=== PATIENT | male | born 1970 | race Caucasian/White ===

== ENCOUNTER 2020-07-02 23:30 | Inpatient (IN) | payer MEDICAID ==
[~2020-07-02] VITALS: Ht 167.6 cm; Wt 99.3 kg
--- NOTE | ~2020-07-02 | EMS ---
[facility] [address] [place] [id number] EMS Patient Care Report Name: EMMA LOUIS Room #: PRE Roni#: [id number] Admission: Attend Phys: Discharge: Date of : 72 Report #: [id number] THIS REPORT FOR: //name// Report Transmitted: 07/02/2020 23:15 EMS Care Summary [place], [place]/[facility] Incident [id number] @ 07/02/2020 22:37 Incident Location [address] [place] [address] Patient EMMA LOUIS Male, 50 Years 1970 Patient Address [address] [place] [address] Patient Allergies No known allergies, Chief Complaint Altered LOC, Hyperglycemia Disposition Transported Lights/[place] Dispatch Reason Sick Person Transported To [facility] Narrative Called to the scene for a sick. Upon arrival, P45 on scene. Pt was found up stairs in the bathroom, naked, sitting on toilet. Family stated they found him slumped over on the tub, lethargic. They said he wasn't right all day and tried to take him to the hospital but he wouldn't go in. He also c/o to his brother about his right arm having tremors or jerking like activity. Family stated LNW was yesterday. He was placed on a stair chair, moved to the EMS cot and loaded into the ambulance w/o incident. Vitals, 4 Lead, 18g IV SL and 1,000 bag hung, D-stick HI, Vitals repeated. Pt is still responsive to voice, does answer some questions but hard to understand, no slurred speech. Vitals [facility] [address] [place] [address] EMS Patient Care Report Name: EMMA LOUIS Room #: PRE ER M.R.#: [id number] Admission: Attend Phys: Discharge: Date of : 72 Report #: [id number] repeated. En route: RR to [facility]. After the EMS report, pt had a full blow, tonic-clonic seizure lasting approx 90 seconds @ 23:17. We pulled the ambulance over, 5mg Versed drawn up, but by the time it was ready the pt had stopped seizing. He became cyanotic in the face during the seizure, O2 via NRB administered, pt pinked up within about 60 seconds. He had a carotid pulse the hole time. 975cc NS. ER updated on pt change. Vitals repeated. D-stick. Arrived: pt taken to ER #4 and moved to their bed w/o incident. Pt care & report to ER staff. *5mg Versed wasted with SMART GRID ENGINEER, see signature section. Initial Vitals @23:14P: 234, @23:07P: 102,SpO2: 93, @23:14P: 251,CO: 0,SpO2: 93, @23:05P: 105,SpO2: 89, @23:18P: 124,BP: 80/60, @23:25P: 110,R: 32,BP: 96/59,Pain: 0/10,GCS: 7,Glucose: -2,SpO2: 98,Revised Trauma: 9,RI Suspected: false @23:06P: 104,R: 36,BP: 75/51,Pain: 0/10,GCS: 12,Glucose: -2,SpO2: 90,Revised Trauma: 8,RI Suspected: false @23:01P: 109,R: 16,BP: 90/60,Pain: 0/10,GCS: 12,SpO2: 90,Revised Trauma: 11, Assessments @22:47MENTAL:Confused,Person Oriented,SKIN:Hot,HEENT:Eyes: Left Pupil: 3-mm,Eyes: Right Pupil: 3-mm,LUNG SOUNDS:ABDOMEN:PELVIS//GI:EXTREMITIES:Left Arm: No Abnormalities,Right Arm: No Abnormalities,Left Leg: No Abnormalities,Right Leg: No Abnormalities,PULSE:Radial: 1+ Thready,Carotid: 2+ Normal,NEURO:@23:17MENTAL:Unresponsive,SKIN:Cyanotic,HEENT:LUNG SOUNDS:ABDOMEN:PELVIS//GI:EXTREMITIES:PULSE:Carotid: 2+ Normal,NEURO:Seizures, Impression Diabetic Hyperglycemia Procedures @23:05Saline Lock 8cc (18 ga) Site: Antecubital-LeftResponse: UnchangedSucceeded@23:07Normal Saline (.9% NaCl) 975cc (18 ga) Site: Antecubital-LeftResponse: UnchangedSucceeded@23:14General CommentsResponse: Worse@22:58StretcherResponse: Unchanged@23:20Oxygen FlowRate: 15 Device: Non Re-breather Mask (NRB) Response: UnchangedSucceeded@22:55StairchairResponse: Unchanged@23:023-Lead ECGResponse: UnchangedSucceeded@22:47ALS AssessmentResponse: UnchangedSucceeded Timeline 22:36,Call Received [facility] [address] [place] [place] [address] EMS Patient Care Report Name: EMMA LOUIS Room #: PRE M.R.#: [id number] Admission: Attend Phys: Discharge: Date of : 72 Report #: [id number] 22:36,Dispatch Notified 22:37,Dispatched 22:39,En Route 22:46,On Scene 22:47,At Patient 22:47,ALS Assessment,Response: UnchangedSucceeded, 22:55,Stairchair,Response: Unchanged 22:58,Stretcher,Response: Unchanged 23:01,BP: 90/60 M,PULSE: 109,RR: 16 R,SPO2: 90 Ox,ETCO2: ,BG: ,PAIN: 0,GCS: 12, 23:02,3-Lead ECG,Response: UnchangedSucceeded, 23:05,Saline Lock 8cc 18 ga Site: Antecubital-Left,Response: UnchangedSucceeded, 23:05,BP: / M,PULSE: 105,RR: R,SPO2: 89 Ox,ETCO2: ,BG: ,PAIN: ,GCS: , 23:06,BP: 75/51 M,PULSE: 104,RR: 36 R,SPO2: 90 Ox,ETCO2: ,BG: -2,PAIN: 0,GCS: 12, 23:07,Normal Saline (.9% NaCl) 975cc 18 ga Site: Antecubital-Left,Response: UnchangedSucceeded, 23:07,BP: / M,PULSE: 102,RR: R,SPO2: 93 Ox,ETCO2: ,BG: ,PAIN: ,GCS: , 23:10,Depart Scene 23:14,BP: / M,PULSE: 251,RR: R,SPO2: 93 Ox,ETCO2: ,BG: ,PAIN: ,GCS: , 23:14,General Comments,Response: Worse 23:14,BP: / M,PULSE: 234,RR: R,SPO2: Ox,ETCO2: ,BG: ,PAIN: ,GCS: , 23:18,BP: 80/60 M,PULSE: 124,RR: R,SPO2: Ox,ETCO2: ,BG: ,PAIN: ,GCS: , 23:20,Oxygen FlowRate: 15 Device: Non Re-breather Mask (NRB) Response: UnchangedSucceeded, 23:25,BP: 96/59 M,PULSE: 110,RR: 32 R,SPO2: 98 Ox,ETCO2: ,BG: -2,PAIN: 0,GCS: 7, 23:33,At Destination 23:48,Call Closed Disclaimer v1.1 Copyright 2020 [employer] This EMS Care Summary contains data elements from the applicable legal record (which may be displayed differently). It is designed to provide pertinent information for the following purposes: continuity of care, clinical quality, and state data reporting. The complete legal record is available to ED staff and administrators of the receiving hospital in [employer]'s Patient Tracker. All data is provided "as is."
[2020-07-02 23:32] VITALS: BP 102/58
[2020-07-03] VITALS (103 sets, daily range): BP systolic 78–135; BP diastolic 36–82
--- NOTE | 2020-07-03 | NUR ---
INTUBATION BY ERP SUCC 120MG ETOMIDATE 20MG TAPED AT 25 TO LIP OG TUBE TAPED AT 65
[2020-07-03 00:14] LABS: BE(vivo) -14.3 mmol/L (-2 to +3); HCO3 14.8 mmol/L (22.0-26.0); PCO2 46.2 mmHg (35.0-45.0)
[2020-07-03 00:15] LABS: pH 7.124 (7.360-7.450)
[2020-07-03 00:36] LABS: ABSOLUTE NEUTROPHILS 10.3 thou/uL (1.4-8.2); BASOPHILS 0.3 % (0.0-2.0); HEMOGLOBIN 14.9 gm/dL (14.0-18.0); LYMPHOCYTES 13.9 % (24.0-44.0); MCH 30.7 pg (26.0-34.0); MCHC 28.2 g/dL (28.0-37.0); MCV 108.9 fL (80.0-100.0); MONOCYTES 11.8 % (1.0-8.0); PLATELET COUNT 377 thou/uL (150-400); RBC 4.86 mil/uL (4.50-6.00); RDW 15.6 % (10.5-14.5); WBC 13.9 thou/uL (4.0-11.0)
[2020-07-03 00:42] LABS: ANION GAP 27 mmol/L (7-16); BUN 65 mg/dL (7-18); CALCIUM 9.7 mg/dL (8.5-10.1); CHLORIDE 90 mmol/L (98-107); CO2 15 mmol/L (21-32); CREATININE 4.1 mg/dL (0.7-1.3); POTASSIUM 4.7 mmol/L (3.5-5.1); SODIUM 132 mmol/L (136-145)
[2020-07-03 00:49] LABS: ALBUMIN 3.5 g/dL (3.4-5.0); DIRECT BILIRUBIN < 0.1 mg/dL (<0.1-0.2); SGOT 11 U/L (15-37); SGPT 40 U/L (30-65); TOTAL BILIRUBIN 0.4 mg/dL (0.2-1.0); TOTAL PROTEIN 7.5 g/dL (6.4-8.2); TROPONIN-I <0.06 ng/mL (<0.06)
[2020-07-03 01:13] LABS: URINE BILIRUBIN NEGATIVE (Negative); URINE BLOOD 3+ (Negative); URINE CLARITY CLEAR; URINE COLOR YELLOW; URINE GLUCOSE-RANDOM* 3+ (Negative); URINE KETONES NEGATIVE (Negative); URINE LEUKOCYTES-REFLEX NEGATIVE (Negative); URINE NITRITE-REFLEX NEGATIVE (Negative); URINE PROTEIN (DIPSTICK) NEGATIVE (Negative); URINE UROBILINOGEN 0.2 E.U./dl (0.2-1.0)
[2020-07-03 01:25] LABS: BE(vivo) -11.1 mmol/L (-2 to +3); HCO3 16.5 mmol/L (22.0-26.0); PCO2 42.6 mmHg (35.0-45.0); PO2 169.4 mmHg (80.0-100.0); sO2 98.8 % (92.0-98.0)
[2020-07-03 01:26] LABS: pH 7.205 (7.360-7.450)
[2020-07-03 01:31] LABS: AMP/METHAMP Negative (Negative); BARBITURATES Negative (Negative); BENZODIAZEPINES Negative (Negative); COCAINE Negative (Negative); METHADONE Negative (Negative); OPIATES Negative (Negative); PCP Negative (Negative)
[2020-07-03 01:45] LABS: GLUCOSE 1994 mg/dL (74-106)
--- NOTE | 2020-07-03 04:11 | NUR ---
BROTHER SHENG LOUIS ([phone]) CALLED AND GIVEN UPDATE ON POC.
[2020-07-03 06:54] LABS: CHOLESTEROL 314 mg/dL (<200); HDL CHOLESTEROL 37 mg/dL (>40); TC:HDL 8.5 Ratio (Not establshd); TRIGLYCERIDE 1332 mg/dL (<150); VLDL 266 mg/dL (<40)
--- NOTE | 2020-07-03 07:03 | EKG ---
[facility] [place] [address] ELECTROCARDIOGRAM REPORT Name: EMMA LOUIS Room #: 238-P ADM IN M.R.#: [id number] Admission: 07/03/20 Attend Phys: Mich Tavares MD Discharge: Date of : 72 Report #: [id number] THIS REPORT FOR: cc: FAM - Family physician unknown FAM - Family physician unknown Deepak Aguayo MD [facility] ~ THIS REPORT FOR: //name// [facility] ED Test Date: 2020-07-03 Test Time: 01:19:37 Pat Name: EMMA LOUIS Department: Room: [facility] Gender: M Distance Education Director: no : 1970 Requested By: Santos Tello Order Number: [id number] MD: Deepak Aguayo Measurements Intervals [place] Rate: 93 P: 69 NM: 129 QRS: 58 QRSD: 101 T: -1 QT: 371 QTc: 462 Interpretive Statements Sinus rhythm Borderline T abnormalities, inferior leads No previous ECG available for comparison Electronically Signed On 07-03-2020 7:03:20 NUMERICAL CONTROL LATHE OPERATOR by Deepak Augayo [email or web address] <ELECTRONICALLY SIGNED> By: Deepak Aguayo MD, FAC 07/03/20 0703 011 8 Deepak Aguayo MD, FACC /EPI
[2020-07-03 07:08] LABS: LIPASE 262 U/L (73-393)
[2020-07-03 09:05] LABS: ALBUMIN 2.8 g/dL (3.4-5.0); CALCIUM 8.9 mg/dL (8.5-10.1); CREATININE 3.3 mg/dL (0.7-1.3)
[2020-07-03 09:13] LABS: MAGNESIUM 4.2 mg/dL (1.8-2.4)
[2020-07-03 09:19] LABS: HEMATOCRIT 45.2 % (42.0-52.0); HEMOGLOBIN 14.7 gm/dL (14.0-18.0)
[2020-07-03 09:23] LABS: PHOSPHORUS 12.9 mg/dL (2.5-4.9)
--- NOTE | 2020-07-03 10:02 | NUR ---
VASCULAR ACCESS CONSULTED FOR CVAD PLACEMENT. PT'S LABS,MEDS,HX,ORDER AND CONSENT VERIFIED. RIJ WAS WIDELY PATENT WITH USG. 6FR 25CM TL POWER JACC INSERTED TO 6CM EXTERNAL. STAT CXR ORDERED.
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
--- NOTE | 2020-07-03 11:47 | NUR ---
CXR CONFIRMED CVAD IN [facility], RELEASED FOR IMMEDIATE USE PER PROTOCOL TO LEO HARDY
[2020-07-03 12:53] LABS: ALBUMIN 2.8 g/dL (3.4-5.0); CALCIUM 8.5 mg/dL (8.5-10.1); MAGNESIUM 3.6 mg/dL (1.8-2.4); PHOSPHORUS 3.2 mg/dL (2.5-4.9); POTASSIUM 3.1 mmol/L (3.5-5.1)
[2020-07-03 17:07] LABS: ALBUMIN 2.7 g/dL (3.4-5.0); CALCIUM 8.5 mg/dL (8.5-10.1); CREATININE 3.1 mg/dL (0.7-1.3); MAGNESIUM 3.4 mg/dL (1.8-2.4); PHOSPHORUS 3.5 mg/dL (2.5-4.9); POTASSIUM 3.4 mmol/L (3.5-5.1)
[2020-07-03 20:38] LABS: ALBUMIN 2.7 g/dL (3.4-5.0); CALCIUM 8.4 mg/dL (8.5-10.1); CREATININE 3.3 mg/dL (0.7-1.3); MAGNESIUM 3.2 mg/dL (1.8-2.4); PHOSPHORUS 4.1 mg/dL (2.5-4.9); POTASSIUM 3.5 mmol/L (3.5-5.1)
--- NOTE | 2020-07-03 23:50 | NUR ---
AT [address] HUTTON TO INCREASE 0.25NS KCL TO 250ML/HR FOR 4 HR THEN TURN IT BACK TO 150ML/HR
[2020-07-04] VITALS (141 sets, daily range): BP systolic 89–129; BP diastolic 47–80
[2020-07-04 00:51] LABS: CALCIUM 8.1 mg/dL (8.5-10.1); CREATININE 3.6 mg/dL (0.7-1.3); POTASSIUM 3.5 mmol/L (3.5-5.1)
[2020-07-04 00:53] LABS: ALBUMIN 2.6 g/dL (3.4-5.0); MAGNESIUM 3.1 mg/dL (1.8-2.4); PHOSPHORUS 3.7 mg/dL (2.5-4.9)
[2020-07-04 04:48] LABS: HEMATOCRIT 38.9 % (42.0-52.0); HEMOGLOBIN 13.5 gm/dL (14.0-18.0); MCH 31.5 pg (26.0-34.0); MCHC 34.8 g/dL (28.0-37.0); RBC 4.3 mil/uL (4.50-6.00); RDW 13.2 % (10.5-14.5); WBC 8.7 thou/uL (4.0-11.0)
[2020-07-04 05:06] LABS: ALBUMIN 2.4 g/dL (3.4-5.0); CALCIUM 7.6 mg/dL (8.5-10.1); CREATININE 3.7 mg/dL (0.7-1.3); PHOSPHORUS 2.9 mg/dL (2.5-4.9); POTASSIUM 3.4 mmol/L (3.5-5.1); TOTAL BILIRUBIN 0.4 mg/dL (0.2-1.0); TOTAL PROTEIN 5.8 g/dL (6.4-8.2)
[2020-07-04 05:07] LABS: MCV 90.5 fL (80.0-100.0)
[2020-07-04 08:07] LABS: GLYCOHEMOGLOBIN (HGB A1C) 17.6 % (4.8-5.6)
[2020-07-04 11:03] LABS: POTASSIUM 3.9 mmol/L (3.5-5.1)
[2020-07-04 11:07] LABS: CALCIUM 7.7 mg/dL (8.5-10.1); MAGNESIUM 2.8 mg/dL (1.8-2.4); TOTAL BILIRUBIN 0.1 mg/dL (0.2-1.0)
[2020-07-04 11:08] LABS: ALBUMIN 2.5 g/dL (3.4-5.0); TOTAL PROTEIN 4.8 g/dL (6.4-8.2)
[2020-07-04 11:39] LABS: BE(vivo) -8.2 mmol/L (-2 to +3); HCO3 16.9 mmol/L (22.0-26.0); PCO2 33.5 mmHg (35.0-45.0); PO2 90.2 mmHg (80.0-100.0); sO2 96.4 % (92.0-98.0)
--- NOTE | 2020-07-04 11:43 | HC ---
[facility] [place] [address] CONSULTATION Name: EMMA LOUIS Room #: 238-P ADM IN M.R.#: [id number] Admission: 07/03/20 Attend Phys: Mich Tavares MD Discharge: Date of : 72 Report #: [id number] THIS REPORT FOR: cc: JIM - Family physician unknown FAM - Family physician unknown Jeffery Rabago MD ~ DATE OF SERVICE: 07/03/2020 ENDOCRINE CONSULTATION NOTE CONSULTING PHYSICIAN: Dr. Tavares. REASON FOR CONSULTATION: DKA. HISTORY OF PRESENT ILLNESS: This is a 50-year-old male patient with little known medical background other than presumed diabetes mellitus, who arrived to the ER via EMS with altered mental status. It appears that the patient has had difficult social circumstances lately as he has been in and out of homelessness and was noted reportedly to have stopped caring for himself. It appears that he had fallen down and was found unresponsive in the bathroom and had suffered seizures in the process as well. On arrival to the ER, the patient was managed for his issues with seizures and was eventually intubated for airway protection. Again, the patient is presumed to have diabetes mellitus based on his presentation with DKA, but given his unresponsive and intubated state, he is not available for a detailed history in that regard. It is unknown at this point in time whether or not he has been on active therapy at home, but it is presumed that he has not been taking any medications as of late. On arrival to the ER, the patient was found to have blood glucose of nearly 2000 mg/dL. He was also found to have a wide anion gap. Subsequently, he was started on IV insulin therapy and was transferred to the ICU for further care and monitoring. The patient is currently intubated and has gradually declined his blood glucose level to just above 800 mg/dL. REVIEW OF SYSTEMS: As per the medical chart documentation and with this report. CONSTITUTIONAL: Fatigue, tiredness. NEUROLOGICAL: Altered mental status, loss of consciousness and unresponsiveness. Reported for witnessed generalized seizures. GASTROINTESTINAL: No nausea or vomiting. No reported abdominal pain. Otherwise, his review of systems cannot be obtained at this point in time due to his unresponsive state. PAST MEDICAL HISTORY: Diabetes mellitus. [address] [address] CONSULTATION Name: EMMA LOUIS Room #: 238-P [facility] IN M.R.#: [id number] Admission: 07/03/20 Attend Phys: Mich Tavares MD Discharge: Date of : 72 Report #: [id number] OUTPATIENT MEDICATIONS: None. ALLERGIES: Unknown allergies. FAMILY HISTORY: Cannot be obtained at this point in time. SOCIAL HISTORY: Reportedly, the patient is not actively using tobacco, alcohol or illicit drugs. However, this cannot be verified with the patient at this point in time. PHYSICAL EXAMINATION: GENERAL: The patient is lying in bed supine, he is intubated and sedated. VITAL SIGNS: Blood pressure is 93/44 mmHg, heart rate is 83 beats per minute, respirations 24 per minute, temperature 36.6 degrees Celsius. CONSTITUTIONAL: He is lying supine in bed. He is intubated and mechanically ventilated. HEENT: Anicteric sclerae. NECK: Supple, no thyromegaly. CHEST: Noted for coarse breath sounds bilaterally with moderate air entry. No wheeze or crackles. HEART: Regular rate and rhythm without murmurs or gallops. ABDOMEN: Soft, lax. No guarding. Sluggish bowel sounds. EXTREMITIES: Lower extremity exam, trace ankle edema bilaterally. NEUROLOGIC: He is sedated and unresponsive. PSYCHIATRIC: He is sedated and unresponsive. LABORATORY DATA: Sodium 149, this is up from 132 on arrival. Potassium 3.0, down from 4.7 on arrival, chloride 112, CO2 of 21, anion gap 16, this is down from 27 on arrival, BUN 64, creatinine 3.3, this is down from 4.1 on arrival, glucose on arrival was 1994 step down to 1246 and most recently before this dictation at 825 mg/dL, AST 11, lipase 262, total bilirubin 0.4, calcium 8.9, phosphorus 3.0, magnesium 4.0, alkaline phosphatase 150, ALT 40, total protein 7.5, albumin 2.8, EGFR 20. Lactic acid 1.1. CPK 1182, troponin negative. Total cholesterol 314, triglycerides 1332, HDL 37, LDL cannot be calculated. Alcohol is negative. Acetone was high over 2. White blood count 13.9, hemoglobin 14.7, hematocrit 45.2, platelets 377. Hemoglobin A1c was ordered and is pending. COVID-19 testing was negative twice. ASSESSMENT AND PLAN: 1. Diabetic ketoacidosis. The patient presented in a clinical state and with metabolic indicators that are consistent with diabetic ketoacidosis. He was appropriately started on IV insulin therapy, but has been rather slow responding to this line of treatment. This has prompted me to order an additional bolus of [facility] [address] [place] [address] CONSULTATION Name: EMMA LOUIS Room #: 238-P ADM IN Mary.#: [id number] Admission: 07/03/20 Attend Phys: Mich Tavares MD Discharge: Date of : 72 Report #: [id number] Humalog insulin to be given intravenously once at 8 units as well as raise his IV insulin rate from 17 units per hour to 20 units per hour. I discussed this case at length with nursing staff and I stressed the need to convert to dextrose based IV fluid support if the patient had blood glucose threshold of 250 or less. Naturally, given his ongoing challenges, the patient will be maintained on IV insulin infusion therapy to be managed as per the [facility] protocol. Blood glucose monitoring will continue hourly as per the [facility] IV insulin protocol. 2. Diabetes mellitus. This is a safe presumption based on his presentation in diabetic ketoacidosis. This does not necessarily preclude that he is a type 2 diabetic. With the patient being sedated and unresponsive, there is very little that we know about his detailed diabetic history, but from the general report of his overall functional decline and abandonment of self care, it is probably likely that he has not been taking any medications. Hemoglobin A1c is pending and will help shed more light on his overall level of control for the past few months. A transition to antidiabetic regimen will be made according to his overall clinical state and when he proves to be stable enough for conversion off of IV insulin. 3. Dyslipidemia. The patient has severe dyslipidemia as evidenced by his triglycerides of 1332. I would rather measure this again once his blood glucose has been controlled better as this might be a sign of severe insulin deficiency. If that is the case, his triglyceride levels stand to improve quite a bit without necessarily having to employ a fibrate agent, which I would like to avoid given his rhabdomyolysis and the concern about under perfusion. I would repeat his triglyceride measurement in 48 hours or so. I certainly appreciate this consultation by Dr. Tavares. <ELECTRONICALLY SIGNED> By: Jeffery Rabago MD 07/04/20 1143 [id number] [id number] Jeffery Rabago MD /nt
--- NOTE | 2020-07-04 15:47 | NUR ---
ASSUMED CARE OF PT 0700. PT INTUBATED AND SEDATED. INSULIN GTT PER PROTOCAL. VSEugenia, ZUNIGA TO DD. PT DOES NOT APPEAR TO BE IN ANY PAIN. SPOKE WITH PT MOTHER TODAY TO UPDATE ON CARE. WILL CONTINUE TO MONITOR.
[2020-07-05] VITALS (130 sets, daily range): BP systolic 85–128; BP diastolic 45–80
[2020-07-05 04:44] LABS: PCO2 33.3 mmHg (35.0-45.0); PO2 69.9 mmHg (80.0-100.0); pH 7.325 (7.360-7.450); sO2 93.1 % (92.0-98.0)
[2020-07-05 06:41] LABS: HEMATOCRIT 34.8 % (42.0-52.0); HEMOGLOBIN 12.1 gm/dL (14.0-18.0); MCH 31.7 pg (26.0-34.0); MCHC 34.8 g/dL (28.0-37.0); MCV 91.3 fL (80.0-100.0); PLATELET COUNT 152 thou/uL (150-400); RBC 3.81 mil/uL (4.50-6.00); RDW 13.7 % (10.5-14.5); WBC 8.4 thou/uL (4.0-11.0)
[2020-07-05 07:04] LABS: CALCIUM 7.5 mg/dL (8.5-10.1); POTASSIUM 3.9 mmol/L (3.5-5.1)
[2020-07-05 07:08] LABS: ALBUMIN 2.1 g/dL (3.4-5.0); MAGNESIUM 2.7 mg/dL (1.8-2.4); TOTAL BILIRUBIN 0.4 mg/dL (0.2-1.0); TOTAL PROTEIN 5.7 g/dL (6.4-8.2)
[2020-07-05 07:42] LABS: CHOLESTEROL 279 mg/dL (<200); HDL CHOLESTEROL 38 mg/dL (>40); TC:HDL 7.3 Ratio (Not establshd)
[2020-07-05 08:26] LABS: TRIGLYCERIDE 1080 mg/dL (<150); VLDL 216 mg/dL (<40)
[2020-07-05 14:08] LABS: BE(vivo) -6.9 mmol/L (-2 to +3); HCO3 16.7 mmol/L (22.0-26.0); PCO2 28.2 mmHg (35.0-45.0); PO2 86.6 mmHg (80.0-100.0); pH 7.391 (7.360-7.450); sO2 96.7 % (92.0-98.0)
[2020-07-05 14:32] LABS: ABSOLUTE NEUTROPHILS 6.5 thou/uL (1.4-8.2)
[2020-07-05 14:33] LABS: ANISOCYTOSIS 1+
--- NOTE | 2020-07-05 16:39 | NUR ---
PT INTUBATED AND SEDATED, VENT SETTINGS CHANGED PER MD ORDERS BY RT. INSULIN GTT IN PLACE. WEANING TRIAL DONE, PT UNABLE TO COME OFF VENT DUE TO INNABILITY TO FOLLOW COMMANDS. BRONCH DONE BY DR BLOCK. PT AFEBRILE, NO BM, ADEQUATE UOP BUT VERY CLOUDY WITH LOTS OF SEDIMENT, RENAL AWARE. NO CHANGES FROM ENDOCRINOLOGY STAND POINT. PT AND FAMILY HAVE BEEN UPDATED AND EDUCATED ON PT CONDITION AND POC. DR RENO WAS ASKED TO CALL PTS BROTHER, HE WAS PROVIDED WITH HIS NUMBER. PTS BROTHER WOULD ALSO LIKE TO TALK TO CASE MANAGEMENT IN ORDER TO GET RESOURCES UPON DISCHARGE. PT SLOWLY PROGRESSING TOWARDS POC.
[2020-07-05 18:10] LABS: PROT/CREAT RATIO 0.7; URINE CREATININE-RANDOM* 177.3 mg/dL; URINE PROTEIN-RANDOM* 124.3 mg/dL (<11.9)
[2020-07-06] VITALS (120 sets, daily range): BP systolic 100–131; BP diastolic 52–83
[2020-07-06 05:13] LABS: BE(vivo) -10.9 mmol/L (-2 to +3); HCO3 13.6 mmol/L (22.0-26.0); PCO2 27.1 mmHg (35.0-45.0); PO2 89.7 mmHg (80.0-100.0); sO2 96.4 % (92.0-98.0)
--- NOTE | 2020-07-06 06:00 | NUR ---
REMAINS INTUBATED AND SEDATED WITH PROPOFOL GTT INSULIN GTT AT 13 UNITS 1000 CC UO THIS SHIFT, SINUS RHYTHM. WILL CONT TO MONITOR
[2020-07-06 07:35] LABS: HEMATOCRIT 35.4 % (42.0-52.0); HEMOGLOBIN 11.7 gm/dL (14.0-18.0); MCH 30.7 pg (26.0-34.0); MCHC 33.2 g/dL (28.0-37.0); MCV 92.3 fL (80.0-100.0); PLATELET COUNT 136 thou/uL (150-400); RBC 3.83 mil/uL (4.50-6.00); RDW 13.9 % (10.5-14.5); WBC 9.6 thou/uL (4.0-11.0)
[2020-07-06 07:46] LABS: CREATININE 3.8 mg/dL (0.7-1.3); POTASSIUM 3.7 mmol/L (3.5-5.1); TOTAL BILIRUBIN 0.3 mg/dL (0.2-1.0); TOTAL PROTEIN 5.8 g/dL (6.4-8.2)
[2020-07-06 08:48] LABS: ABSOLUTE NEUTROPHILS 6.3 thou/uL (1.4-8.2); PLATELET ESTIMATE NORMAL
--- NOTE | 2020-07-06 10:16 | NUR ---
Nutrition: When ok per GI rec start enteral feeds. Pt npo x 3 days. Propofol providing 844 kcals/day. REC 2 cartons Vital HP daily via gravity drip for now. formula appropriate for DM.
[2020-07-06 10:51] LABS: BE(vivo) -7.6 mmol/L (-2 to +3); HCO3 16.8 mmol/L (22.0-26.0); PO2 86.3 mmHg (80.0-100.0); pH 7.352 (7.360-7.450); sO2 96.3 % (92.0-98.0)
--- NOTE | 2020-07-06 11:54 | 2DMMODE ---
[facility] [address] [place] [address] 2 D/M-MODE ECHOCARDIOGRAM Name: EMMA LOUIS Room #: 238-P ADM IN M.R.#: [id number] Admission: 07/03/20 Attend Phys: Mich Tavares MD Discharge: Date of : 72 Report #: [id number] THIS REPORT FOR: cc: FAM - Family physician unknown FAM - Family physician unknown Cali Rosa MD ~ APPROVED REPORT Study performed: 07/06/2020 08:49:33 EXAM: Comprehensive 2D, Doppler, and color-flow Echocardiogram Patient Location: ICU Room #: 238 Status: routine BSA: 2.00 HR: 75 bpm BP: 108/67 mmHg Rhythm: NSR Other Information Study Quality: Good Indications Diabetes Dyspnea 2D Dimensions RVDd: 41.42 mm IVSd: 10.67 (7-11mm) LVOT Diam: 20.18 (18-24mm) LVDd: 48.61 mm PWd: 10.94 (7-11mm) Ascending Ao: 34.24 (22-36mm) LVDs: 32.92 (25-40mm) Aortic Root: 35.51 mm IVC: 15.00 mm Volumes Left Atrial Volume (Systole) Single Plane 4CH: 27.42 mL Single Plane 2CH: 36.04 mL LA ESV Index: 20.00 mL/m2 Aortic Valve AoV Peak Isaiah.: 1.29 m/s AO Peak Gr.: 6.68 mmHg LVOT Max P.46 mmHg LVOT Max V: 1.27 m/s HAYDEE Vmax: 3.14 cm2 [facility] [address] [address] 2 D/M-MODE ECHOCARDIOGRAM Name: EMMA LOUIS Room #: 238-P ADM IN M.R.#: [id number] Admission: 07/03/20 Attend Phys: Mich Tavares MD Discharge: Date of : 72 Report #: [id number] Mitral Valve E/A Ratio: 1.4 MV Decel. Time: 255.73 ms MV E Max Isaiah.: 0.86 m/s MV A Isaiah.: 0.60 m/s MV PHT: 74.16 ms IVRT: 83.04 ms Pulmonary Valve PV Peak Isaiah.: 1.02 m/s PV Peak Gr.: 4.18 mmHg Pulmonary Vein P Vein S: 0.63 m/s P Vein A: 0.34 m/s P Vein D: 0.54 m/s P Vein A Dur.: 92.3 msec P Vein S/D Ratio: 1.17 Left Ventricle The left ventricle is normal size. There is normal LV segmental wall motion. There is normal left ventricular wall thickness. Left ventricular systolic function is normal. The left ventricular ejection fraction is within the normal range. LVEF is 55-60%. The left ventricular diastolic function is normal. Right Ventricle The right ventricle is normal size. The right ventricular systolic function is normal. Atria The left atrium size is normal. The right atrium size is normal. Aortic Valve The aortic valve is normal in structure. No aortic regurgitation is present. There is no aortic valvular stenosis. Mitral Valve The mitral valve is normal in structure. There is no mitral valve regurgitation noted. No evidence of mitral valve stenosis. Tricuspid Valve The tricuspid valve is normal in structure. There is no tricuspid valve regurgitation noted. Pulmonic Valve The pulmonary valve is normal in structure. Trace pulmonic [facility] [address] [place] [address] 2 D/M-MODE ECHOCARDIOGRAM Name: EMMA LOUIS Room #: 238-P [facility] IN M.R.#: [id number] Admission: 07/03/20 Attend Phys: Mich Tavares MD Discharge: Date of : 72 Report #: [id number] regurgitation. Great Vessels The aortic root is normal in size. IVC is normal in size and collapses >50% with inspiration. Pericardium There is no pericardial effusion. <Conclusion> The left ventricle is normal size. LVEF is 55-60%. The right ventricle is normal size. The right ventricular systolic function is normal. The aortic valve is normal in structure. The mitral valve is normal in structure. The tricuspid valve is normal in structure. The pulmonary valve is normal in structure. There is no pericardial effusion. <ELECTRONICALLY SIGNED> By: Cali Rosa MD 07/06/20 1154 1154 1154 Cali Rosa MD /INF
--- NOTE | 2020-07-06 13:00 | NUR ---
chart review. pt remains on vent, is responding to bedside nurse. possible extubation today. will cont following as needed for dc needs. will require assistance medication and finding md for outpt needs after dc from hospital.
--- NOTE | 2020-07-06 13:17 | NUR ---
PT AWAKE, LIFTING HEAD OFF OF BED, MOVING ALL EXTREMITIES TO COMMAND. CALL PLACED TO DR. LIAO FOR POTENTIAL EXTUBATION.
[2020-07-07] VITALS (117 sets, daily range): BP systolic 98–156; BP diastolic 55–85
[2020-07-07 05:39] LABS: CALCIUM 7.3 mg/dL (8.5-10.1); CREATININE 3.1 mg/dL (0.7-1.3); POTASSIUM 3.8 mmol/L (3.5-5.1)
--- NOTE | 2020-07-07 06:00 | NUR ---
REMAINS INTUBATED. AWAKE AND ALERT FOLLOWS COMMANDS STRONG EQUAL MEDICAL DIR SINUS RHYTHM. 1500 CC UO THIS SHIFT. REMAINS ON INSULIN GTT AT 10 UNITS WILL EXTUBATE THIS AM. PROGRESSING TOWARD GOALS
--- NOTE | 2020-07-07 06:55 | NUR ---
PT EXTUBATED AND PLACED ON 4 L NC. CARLOS WELL RESTRAINTS REMOVED.
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
[2020-07-08] VITALS (125 sets, daily range): BP systolic 99–161; BP diastolic 43–112
[2020-07-08 04:06] LABS: CREATININE 2.6 mg/dL (0.7-1.3); POTASSIUM 3.6 mmol/L (3.5-5.1)
--- NOTE | 2020-07-08 06:39 | NUR ---
This RN to bedside at 1900. Patient remained on 3L throughout and tolerated well. Pt coughs up lots of thick yellow and chen secretions. Lung sounds improved. Dr. Cormier to discuss treatment with family members today. VSS, adequate urine ouput. Remains on insulin gtt, fluids and is NPO.
--- NOTE | 2020-07-08 15:12 | NUR ---
PT SEEN TODAY BY RENAL/ENDOCRINOLOGY/HOSPITALIST/RN PLASTICS/SLT/PT/OT PER HOSPITALIST, PT WAS GETTING READY TO DC IN THE NEXT 24 HOURS, HOWEVER DUE TO UNCONTROLLED DIABETES, PREVIOUSLY NOT MANAGED EITHER, PT IS TO STAY AND BE EVALUATED FOR DM MANAGEMENT W/ CURRENT AND NEXT INSULIN REGIMEN. PT/OT SAW THE PT, PT WAS UP AND MOVING AROUND THE UNIT, WAS SEEN LOSING BALANCE 3 TIMES PER PT, RN ALSO WITNESSED THE PT LOSING BALANCE WHEN TRANSFERING FROM CHAIR TO BED LATER IN THE SHIFT. SLT HAS NOT APPROVED PT FOR PUREED DIET AT THIS TIME, MAGIC K CUP/ENSURE PUDDING WAS ORDERED AND PT TOLERATED THAT WELL. PT STILL ON 2L OF NC, WITH SAT AROUND 95% NO OTHER CONCERNS AT THIS TIME. PT IS PROGRESSING TOWARDS DISCHARE, MAKING SLOW PROGRESS WITH EXTRA MOVEMENT. PT IS INCONTINENT, BRAND NEW SHEETS AND ENTIRE BEDDING WAS PROVIDED THIS SHIFT. PT IS COMPETENT IN PROVIDING ORAL CARE FOR SELF IN BED. RN CONTINUING TO MONITOR
[2020-07-09] VITALS (59 sets, daily range): BP systolic 92–130; BP diastolic 42–84
--- NOTE | 2020-07-09 06:54 | NUR ---
VSS. PT'S BLOOD GLUCOSE MAINTAINED WITHIN NORMAL RANGE WHILE ON INSULIN GTT. PT HYPERVERBAL. HAD LARGE BM THIS SHIFT. BATHED/LINEN CHANGED. PT HAD 1050 CC URINE OUT OVERNIGHT. PT PROGRESSING TOWARDS GOALS IN PLAN OF CARE.
[2020-07-09 08:49] LABS: ALBUMIN 1.9 g/dL (3.4-5.0); CALCIUM 8.5 mg/dL (8.5-10.1); CREATININE 2.3 mg/dL (0.7-1.3); PHOSPHORUS 2.6 mg/dL (2.5-4.9); POTASSIUM 3.2 mmol/L (3.5-5.1)
[2020-07-09 10:49] LABS: HEMATOCRIT 32.1 % (42.0-52.0); HEMOGLOBIN 10.7 gm/dL (14.0-18.0); MCH 30.7 pg (26.0-34.0); MCHC 33.3 g/dL (28.0-37.0); MCV 92.2 fL (80.0-100.0); RBC 3.48 mil/uL (4.50-6.00); RDW 13.7 % (10.5-14.5); WBC 8.7 thou/uL (4.0-11.0)
--- NOTE | 2020-07-09 18:26 | NUR ---
FULLY ORIENTED, VERY ARTICULATE. SPOKE TO BROTHER ON PHONE WHO IS VERY CONCERNED THAT WE ARE NOT TREATING HIS MENTAL ILLNESS. ASSUREED HIM THAT I WOULD LET DR. SANCHES KNOW TO CALL HIM WHEN SHE ROUNDS DIEGO. SLT ORDERED PUREED DIET WITH HONEY THICK LIQUID. TMAX 99.2. PSEUDOMONAS IN SPUTUM, STARTED ON FLAGYL.
[2020-07-10] VITALS (12 sets, daily range): BP systolic 109–130; BP diastolic 45–74
--- NOTE | 2020-07-10 06:03 | NUR ---
PATIENT REMAINS A/O. AFEBRILE. VSS. PATIENT HAS TX ORDERS. REPORT CALLED TO 4W RN. PATIENT OFF THE UNIT AT APPROX 0530. PATIENT TAKEN WITH ALL PERSONAL BELONGINGS TO INCLUDE DRIVERS LICENSE. DENIES NEEDS. ALL QUESTIONS ANSWERED.
[2020-07-10 07:56] LABS: ALBUMIN 1.8 g/dL (3.4-5.0); CALCIUM 8.5 mg/dL (8.5-10.1); CREATININE 2.1 mg/dL (0.7-1.3); PHOSPHORUS 3.2 mg/dL (2.5-4.9); POTASSIUM 3.8 mmol/L (3.5-5.1)
--- NOTE | 2020-07-10 11:00 | NUR ---
chart review, discussed during prime time and with hospitalist. still in dka, still working on medication and insulin. pt is being compliant with medication and tx. he is not refusing cares. he will be here through weekend. possible will be ready monday. ok per cm bulk plant supervisor to vouch for medication and diabetes supplies at dc. will cont following as needed for dc needs. dr thurston has visited with gabriela duran via phone call.
[2020-07-10 16:53] LABS: ALBUMIN 1.9 g/dL (3.4-5.0); CALCIUM 8.6 mg/dL (8.5-10.1); POTASSIUM 3.8 mmol/L (3.5-5.1)
--- NOTE | 2020-07-10 22:14 | NUR ---
ASSUMED CARE OF PT AT 0700. PT IS A&OX4, VITAL SIGNS STABLE. PT DENIES PAIN. ZUNIGA CATHETER IN PLACE, DRAINING APPROPRIATELY. ACCU CHECKS ACHS. ELEVATED TEMP IN AM, RETURNED TO NORMAL LIMITS THIS SHIFT. TRIPLE LUMEN IJ IN PLACE, IV TEAM NOTIFIED OF CONCERNS WITH FLUSING AND DRESSING. ORDERED FLUIDS INFUSING. AT APPROXIIMATELY 1600 PT BECAME AGITATED AND IRRITABLE. PT STATED "I AM NOT DOING THINGS YOUR WAY ANYMORE, IM GOING TO BE THE ONE MAKING THE DECISIONS FROM NOW ON." "I WASNT ALIVE UNTIL A WEEK AGO" "YOU KEEP TELLING ME I CANT DO THINGS BECAUSE YOU DONT WANT ME TO MORRIS YOU, BUT I AM GOING TO DO IT ANYWAY" "IF I CANT DO WHAT I WANT THEN I AM GOING TO CALL MY BROTHER AND LEAVE." SPOKE WITH PATIENT AT LENGTH ABOUT MEDICAL CONDITION, RISKS FOR FALLS AND LEAVING HOSPITAL. PT CONTINUED TO REFUSE TO ALLOW STAFF TO TURN ON BED ALARM. PT EXPRESSED POOR INSIGHT INTO MEDICAL CONDITION AND RISKS. HOSPITALIST AND PSYCHIATRY NOTIFIED. PT SPOKE WITH DR SANCHES ABOUT CONCERNS. PT IN BED ASLEEP AT SHIFT CHANGE. BLOOD NOTED IN STOOL AND ON BED PAD , HOSPITALIST AND GI NOTIFIED, GI STATES THEY WILL VISIT WITH PT IN AM, POSSIBLE COLONOSCOPY. NURSING WILL CONTINUE TO MONITOR.
[2020-07-11 05:47] LABS: ALBUMIN 1.8 g/dL (3.4-5.0); CALCIUM 8.6 mg/dL (8.5-10.1); CREATININE 1.9 mg/dL (0.7-1.3); PHOSPHORUS 3.3 mg/dL (2.5-4.9); POTASSIUM 3.3 mmol/L (3.5-5.1)
[2020-07-11 07:15] VITALS: BP 119/74
--- NOTE | 2020-07-11 08:00 | NUR ---
ASSUMED CARE OF PT AT 1900HRS. PT AOX4 AND LETS NEEDS BE KNOWN. FALL PRECAUTION IN PLACE BUT PT CAN BE NON COMPLIENT. ASSESSMENT CHARTED. PT HAS A COUGH. PT DENIED PAIN, NAUSEA OR SOA. PT WAS ABLE TO GET COMFORTABLE AND SLEEP PART OF THE SHIFT. REPORT GIVEN TO AM RN.
--- NOTE | 2020-07-11 10:48 | NUR ---
VERO SPOKE WITH ANTONY MCADAMS ABOUT GETTING ORDER TO DC CENTRAL LINE. PT GETTING IVFS AND HAS PIV ACCESS.
[2020-07-11 14:32] VITALS: BP 102/62
--- NOTE | 2020-07-11 17:06 | NUR ---
PATIENT'S BLOOD SUGAR WAS 76 GAVE PATIENT APPLE BUT PATIENT DOES WANT STATES DOESNT NEED ANYTHING. PT WAS GIVEN THROAT LOZENGE AND ORDER IS PRN WILL GIVE WHEN HE CAN HAVE AGAIN. PT IS FUSSY ANDD MAKES NEGATIVE STATEMENTS DIRECTED AT HOSPITAL AND STAFF.
--- NOTE | 2020-07-11 20:00 | NUR ---
Pt. coughing and has low grade temp. Jasmina FLORES called and notifed (see orders in cpoe). Pt. can be very negative and rude to nurse and staff members. He voiced that he felt no one was doing anything for his sore throat after many attempts of letting dr and nurses know. PO tylenol given (see emar). Bed alarm is on.
[2020-07-11 20:06] VITALS: BP 118/69
[2020-07-12 04:44] LABS: ALBUMIN 1.9 g/dL (3.4-5.0); CALCIUM 8.6 mg/dL (8.5-10.1); CREATININE 1.6 mg/dL (0.7-1.3); PHOSPHORUS 4.3 mg/dL (2.5-4.9); POTASSIUM 3.2 mmol/L (3.5-5.1)
--- NOTE | 2020-07-12 06:00 | NUR ---
Pt. did rest quietly at intervals during the night when checked on during frequent rounds. Po cough syrup given (see emar) for cough with some relief noted.
[2020-07-12 07:07] LABS: HEMATOCRIT 30.9 % (42.0-52.0); HEMOGLOBIN 10.4 gm/dL (14.0-18.0); MCH 30.5 pg (26.0-34.0); MCHC 33.5 g/dL (28.0-37.0); MCV 91.2 fL (80.0-100.0); PLATELET COUNT 396 thou/uL (150-400); RBC 3.39 mil/uL (4.50-6.00); RDW 13.4 % (10.5-14.5); WBC 9.6 thou/uL (4.0-11.0)
[2020-07-12 07:48] LABS: ABSOLUTE NEUTROPHILS 5.6 thou/uL (1.4-8.2); PLATELET ESTIMATE NORMAL
[2020-07-12 08:15] VITALS: BP 129/75
[2020-07-12 16:44] VITALS: BP 112/61
--- NOTE | 2020-07-12 17:14 | NUR ---
PT A&OX4, VSS, C/O PAIN IN THROAT. MEDICATION GIVEN TO ASSIST. NO SIGNS OF DISTRESS. WILL CONTINUE TO MONITOR.
[2020-07-12 19:17] VITALS: BP 121/57
[2020-07-13 05:16] LABS: ABSOLUTE NEUTROPHILS 5.7 thou/uL (1.4-8.2); BASOPHILS 0.7 % (0.0-2.0); EOSINOPHILS 2.2 % (0.0-3.0); HEMATOCRIT 30.5 % (42.0-52.0); HEMOGLOBIN 10.2 gm/dL (14.0-18.0); LYMPHOCYTES 23.9 % (24.0-44.0); MCH 30.4 pg (26.0-34.0); MCHC 33.6 g/dL (28.0-37.0); MCV 90.6 fL (80.0-100.0); MONOCYTES 8.5 % (1.0-8.0); PLATELET COUNT 396 thou/uL (150-400); POLYS 64.7 % (36.0-66.0); RBC 3.37 mil/uL (4.50-6.00); RDW 13.2 % (10.5-14.5); WBC 8.8 thou/uL (4.0-11.0)
[2020-07-13 05:24] LABS: CHOLESTEROL 216 mg/dL (<200); HDL CHOLESTEROL 31 mg/dL (>40); LDL CHOLESTEROL 149 mg/dL (<100); TRIGLYCERIDE 182 mg/dL (<150); VLDL 36 mg/dL (<40)
[2020-07-13 05:26] LABS: SERUM ASSESSMENT Clear
--- NOTE | 2020-07-13 06:17 | NUR ---
Assumed pt care at 1900. A/OX4, very fussy and irritable at the beginning of the shift complaining about sorethroat and no one doing anything about it. Manager Animation spent lengthy time listening to pt's concerns offered to order more meds to help with sorethroat/insomnia but pt declined stating he doesn't want anything else it won't work,and will wan Hospital/staff on dc,house sup notified. Pt medicated with Lozenges/Cough syrup per request and hasn't voiced any further complaints through the night. Does have a hoarse voice with occasional non productive cough noted. Resting queitly at this time w/o distress noted. De Leon in place to DD with yellow urine. Fall precautions in place. Will continue to monitor pt.
--- NOTE | 2020-07-13 07:41 | HC ---
Formerly [facility] [place] [address] CONSULTATION Name: EMMA LOUIS Room #: 458-P ADM IN M.R.#: [id number] Admission: 07/03/20 Attend Phys: Mich Tavares MD Discharge: Date of : 72 Report #: [id number] THIS REPORT FOR: cc: FAM - Family physician unknown FAM - Family physician unknown Johnnie Rodriguez MD ~ REASON FOR CONSULTATION: Acute kidney injury. HISTORY OF PRESENT ILLNESS: This is obtained from the medical chart. The patient is currently intubated. We do not have any information about him. He was brought by his family because of shaking. He was found slumped over his toilet, naked and unresponsive. The patient experienced what was described as seizure. He is homeless and stopped caring for his facility. On arrival to the Emergency Room, the patient's blood sugar was 1994. He had an acute kidney injury with a creatinine value of 4.1. No previous medical values are available for the patient. I was consulted to manage his acute kidney injury. He is currently intubated in the ICU. He is maintained on IV fluid along with insulin drip. ALLERGIES: Unable to assess. FAMILY HISTORY: Unable to assess given the patient's current mental status. SOCIAL HISTORY: Homeless. REVIEW OF SYSTEMS: Unable to obtain given the patient's current mental status. MEDICATIONS: Unknown given the patient's current mental status. PAST MEDICAL AND SURGICAL HISTORY: Unable to assess given the patient's current mental status. PHYSICAL EXAMINATION: GENERAL: The patient is intubated. VITAL SIGNS: Blood pressure is 93/44, pulse rate is 83, respiratory rate is 24. HEAD AND NECK: ET tube in place. CHEST: No crackles. CARDIOVASCULAR: No rub. ABDOMEN: Soft. EXTREMITIES: Lower extremities, no edema. LABORATORY DATA: A pH of 7.2, hemoglobin of 14.9. Sodium 132, potassium 4.7, carbon dioxide 15, anion gap of 27, creatinine is 4.1. IMPRESSION AND PLAN: Formerly [facility] [address] [place] [address] CONSULTATION Name: EMMA LOUIS Room #: 458-P [facility] IN .R.#: [id number] Admission: 07/03/20 Attend Phys: Mich Tavares MD Discharge: Date of : 72 Report #: [id number] 1. Acute kidney injury. 2. Pseudohyponatremia. 3. Anion gap metabolic acidosis. 4. Diabetic ketoacidosis. 5. Hypertriglyceridemia. 6. Elevated CPK. 7. This is all related to volume depletion because of his significant diabetic ketoacidosis. I talked with the nurses regarding the management of his IV fluid. 8. Serial labs. 9. Insulin drip. 10. Aggressive IV fluid resuscitation. 11. Investigate the source for his lactic acidosis. 12. Antibiotic coverage. 13. Seizure medications. 14. Hopefully with the closing of his anion gap and the IV fluid resuscitation, his kidney function should continue to improve; however, we need to obtain his previous creatinine values. <ELECTRONICALLY SIGNED> By: Johnnie Rodriguez MD 07/13/20 [id number] [id number] 0100 Johnnie Rodriguez MD /nt
[2020-07-13 08:10] VITALS: BP 121/60
[2020-07-13 10:48] LABS: CALCIUM 8.3 mg/dL (8.5-10.1); CREATININE 1.6 mg/dL (0.7-1.3); PHOSPHORUS 4.6 mg/dL (2.5-4.9); POTASSIUM 3.8 mmol/L (3.5-5.1)
--- NOTE | 2020-07-13 15:44 | NUR ---
CARE TEAM INDICATED THAT THEY ARE TO DO EGD/COLONOSCOPY TOMORROW. PT TO DO PREP TONIGHT. PHYSICIAN INDICATED THAT PT MAY BE MEDICALLY STABLE TO DC HOME AFTER PROCEDURES TOMORROW. 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 CM TO FOLLOW INDICATED WITH DC PLANNING.
--- NOTE | 2020-07-13 20:05 | NUR ---
ASSUMED CARE AT 0700. ASSESSMENT PER CHART. PT WITH DECREASED SOA WITH MOVEMENT TODAY, WALKED STEADY WITH PHYSICAL THERAPY. DENIES PAIN. SCHEDULED FOR EGD/COLON TOMORROW WITH DR KIM. PROGRESSING TOWARDS POC GOALS.
[2020-07-13 20:06] VITALS: BP 122/65
--- NOTE | 2020-07-14 08:03 | NUR ---
Assumed pt care at 1900. Pt completed bowel prep as ordered and having loose brown stools. Denies pain on assessment,VSS. Pt has been NPO since midnight.De Leon patent to DD with yellow urine. No other needs voiced at this time.
[2020-07-14 09:27] VITALS: BP 133/77
[2020-07-14 12:40] VITALS: BP 124/65
[2020-07-14] MEDS ORDERED: FENOFIBRATE54 MG PO (13:30)
[2020-07-14] MEDS ORDERED: MESALAMINE4 GM/60 M2 RECTAL (13:31)
[2020-07-14] MEDS ORDERED: LANTUS SUBQ (13:31)
[2020-07-14] MEDS ORDERED: HUMALOG100 UNIT/1 SUBQ (13:32)
[2020-07-14] MEDS ORDERED: FREESTYLE LITE1 EAC1 MISCELL (13:37)
[2020-07-14] MEDS ORDERED: FREESTYLE LITE1 EACH MISCELL (13:38)
[2020-07-14] MEDS ORDERED: PROTONIX40 M4 PO (13:42)
[2020-07-14] MEDS ORDERED: FREESTYLE LANC1 EACH MISCELL (13:44)
[2020-07-14 13:57] VITALS: BP 133/77
[2020-07-14 14:50] VITALS: BP 133/77
--- NOTE | 2020-07-14 14:50 | NUR ---
Received awake on bed. On nothing per orem, pt informed and aware. On room air. Vital signs stable. On MS, not on telemetry; no complains and signs of chest pain, crushing sensation and heaviness. On blood sugar monitoring, taken and recorded accordingly. With weathers in place; draining well- output measured and recorded accordingly. With SL at L FA- intact and flushing well. Assisted in ADLs. Falls bundle in place. No nausea, no vomiting and no abdominal pain noted. Pt brought down via wheelchair for EGD/Colonoscopy, report given to pre-op nurse; tolerated procedure well; vital sign stable. Pt seen and examined by ST- evaluation done; new diet ordered. Pt seen and examined by Dr Castillo, discharge orders made- CM updated; prescription done for meds and glucometer to be vouched- health teaching to be done for blood sugar monitoring and insulin administration. Pt to be fetched by his brother, CM contacted him re: transport- pt updated. Complained of sore throat- PRN medication given as prescribed. To continue monitoring patient.
--- NOTE | 2020-07-14 16:39 | NUR ---
CARE TEAM INDICATED THAT PT IS MEDICALLY STABLE TO DISICHARGE HOME THIS DAY. PT'S MEDS AND DM SUPPLIES ALL FILLED AND VOUCHERED THROUGH OP PHARMACY BY CM DEPARTMENT. PT'S BROTHER SHENG IS TO PROVIDED TRNASPORT HOME THIS DAY. CM SPOKE WITH SHENG AND PT'S UNCLE LIZZETTE LOUIS THIS DAY. THEY ARE AWARE OF DC. MED ASSIST HAD COMPLETED [place] MEDICA[place] AND DIS[place] APPLICATIONS ON PT'S BEHALF DURING STAY. CM SPROVIDED BROTHER AND NUCLE WITH MEDASSIST PHONE NUMBER SHOULD THEY NEED TO ASSSIT WITH ANY ADDITIONAL INFO. CM PROVIDED A SAFTEY NET CLINIC PACKET. NO OTHER CM INTERVENTION INDICATED. CASE CLOSED.
[2020-07-14 17:00] VITALS: BP 127/82
== END 2020-07-14 17:40 | disposition home or self-care (01) | DRG 637 ==
LOC: ER 23:30 → EROBS 07-03 02:40 → ICU 07-03 02:40 → 4W 07-10 05:43
PROVIDERS: Emergency Medicine; Hospitalist; Internal Medicine; Internal Medicine Nephrology; Internal Medicine Pulmonary Disease; Nurse Practitioner; Nurse Practitioner Family; Pediatrics; ADMIT Internal Medicine; ATTEND Internal Medicine
DX: E11.10 Type 2 diabetes mellitus with ketoacidosis without coma (principal); J96.01 Acute respiratory failure with hypoxia; J96.02 Acute respiratory failure with hypercapnia; G92 Toxic encephalopathy; N17.9 Acute kidney failure, unspecified; E87.2 Acidosis; E87.1 Hypo-osmolality and hyponatremia; E78.1 Pure hyperglyceridemia; E78.5 Hyperlipidemia, unspecified; E11.65 Type 2 diabetes mellitus with hyperglycemia; F39 Unspecified mood [affective] disorder; D64.9 Anemia, unspecified; E87.6 Hypokalemia; K22.2 Esophageal obstruction; K44.9 Diaphragmatic hernia without obstruction or gangrene; K25.9 Gastric ulcer, unspecified as acute or chronic, without hemorrhage or perforation; K57.30 Diverticulosis of large intestine without perforation or abscess without bleeding; K63.5 Polyp of colon; K64.8 Other hemorrhoids; K62.89 Other specified diseases of anus and rectum; Z20.828 Contact with and (suspected) exposure to other viral communicable diseases; Z23 Encounter for immunization; Z79.899 Other long term (current) drug therapy
CPT/HCPCS: 10047; 10078; 70005